=== PATIENT | male | born 1940 | race Caucasian/White ===

== ENCOUNTER 2020-04-16 20:39 | Inpatient (IN) | payer MEDICARE, OTHER ==
[~2020-04-16] VITALS: Ht 170.2 cm; Wt 77.1 kg
[~2020-04-16 20:39] MED LIST: ETOMIDATE 2 MG/ML 10 ML INJ IV ONE; MIDAZOLAM HCL 2 MG/2 ML VIAL ONE; VECURONIUM BROMIDE FOR INJ 20 MG VIAL ONE; WATER STERILE 10 ML VIAL ONE
[2020-04-16 21:11] LABS: BASOPHILS % 0.1 % (0.0-1.0); HEMATOCRIT 24.1 % (38.2-49.6); HEMOGLOBIN 7.8 g/dL (14.0-18.0); LYMPHOCYTES # (AUTO) 1.2 (1.0-3.2); LYMPHOCYTES % 8.4 % (18.0-39.1); MEAN CORPUSCULAR HEMOGLOBIN 32.5 pg (28-32); MEAN CORPUSCULAR HGB CONC 32.4 g/dL (31-35); MEAN CORPUSCULAR VOLUME 100.4 fL (81-99); MONOCYTES # (AUTO) 0.9 (0.2-0.8); MONOCYTES % 6.6 % (4.4-11.3); NEUTROPHILS # (AUTO) 11.9 (2.1-6.9); NEUTROPHILS % 84.5 % (38.7-80.0); PLATELET COUNT 425 x10e3/uL (140-360); RED CELL DISTRIBUTION WIDTH 13.4 % (11.7-14.4)
[2020-04-16 21:26] LABS: ALBUMIN 3.4 g/dL (3.5-5.0); ALBUMIN/GLOBULIN RATIO 0.9 (0.8-2.0); ANION GAP 20.8 mmol/L (8-16); CALCIUM 8.3 mg/dL (8.4-10.2); CREATININE, SERUM 1.29 mg/dL (0.72-1.25); POTASSIUM 3.8 mmol/L (3.5-5.1)
[2020-04-16] MEDS ORDERED: ASPIRIN 325 MG TAB PO ONE (21:45)
[2020-04-16] MEDS ORDERED: ASPIRIN 325 MG TAB ONE (21:52)
[2020-04-16] MEDS ORDERED: NITROGLYCERIN 2% OINT 1 GM PKT TOP ONE (22:00)
[2020-04-16] MEDS ORDERED: FUROSEMIDE INJ 10 MG/ML 4 ML VIAL IV ONE (22:00)
[2020-04-16 23:08] LABS: CREATINE KINASE MB 13.8 ng/mL (0-5.0)
[2020-04-16] MEDS ORDERED: LORAZEPAM INJ 2 MG/ML VIAL IV ONE (23:30)
[2020-04-17] MEDS ORDERED: LORAZEPAM INJ 2 MG/ML VIAL IV ONE (02:45)
[2020-04-17 04:27] LABS: BASOPHILS % 0.1 % (0.0-1.0); HEMATOCRIT 25.5 % (38.2-49.6); HEMOGLOBIN 7.9 g/dL (14.0-18.0); LYMPHOCYTES # (AUTO) 0.3 (1.0-3.2); MEAN CORPUSCULAR HEMOGLOBIN 32.2 pg (28-32); MEAN CORPUSCULAR VOLUME 104.1 fL (81-99); MONOCYTES # (AUTO) 1.4 (0.2-0.8); MONOCYTES % 5.7 % (4.4-11.3); NEUTROPHILS % 92.6 % (38.7-80.0); PLATELET COUNT 397 x10e3/uL (140-360); RED BLOOD COUNT 2.45 x10e6/uL (4.3-5.7); RED CELL DISTRIBUTION WIDTH 13.2 % (11.7-14.4)
[2020-04-17] MEDS ORDERED: CEFEPIME 1GM/NS 0.9% 50 ML 50 ML IV STA (04:35)
[2020-04-17 04:44] LABS: ANION GAP 22.2 mmol/L (8-16); CALCIUM 8.4 mg/dL (8.4-10.2); CREATININE, SERUM 1.86 mg/dL (0.72-1.25); POTASSIUM 4.2 mmol/L (3.5-5.1)
[2020-04-17 05:12] LABS: CREATINE KINASE MB 48.9 ng/mL (0-5.0)
[2020-04-17] MEDS ORDERED: ACETAMINOPHEN 650 MG SUPP PR ONE (05:55)
[2020-04-17 06:21] LABS: LYMPHOCYTES % (MANUAL) 1 % (19-48); MONOCYTES % (MANUAL) 5 % (3.4-9.0); NEUTROPHILS % (MANUAL) 94 % (40-74); NUCLEATED RED BLOOD CELLS 1; RBC MORPHOLOGY COMMENT NORMAL
[2020-04-17 06:22] LABS: PLATELET ESTIMATE ADEQUATE; PLATELET MORPHOLOGY COMMENT NORMAL
[2020-04-17 06:38] LABS: CLARITY,URINE CLEAR (CLEAR); COLOR,URINE YELLOW (YELLOW); KETONES,URINE NEGATIVE (NEGATIVE); LEUKOCYTE ESTERASE ,URINE NEGATIVE (NEGATIVE); NITRITE,URINE NEGATIVE (NEGATIVE); PROTEIN,URINE DIPSTICK 2+ (NEGATIVE); URINE UROBILINOGEN 0.2 mg/dL (0.2 - 1)
[2020-04-17 06:46] LABS: BACTERIA,URINE MODERATE /HPF; EPITHELIAL CELLS,URINE RARE /LPF; RBC,URINE 0-5 /HPF (0-5); WBC,URINE (MAN) 0-5 /HPF (0-5)
[2020-04-17] MEDS ORDERED: PROPOFOL IV EMULSION 10MG/ML 100 ML ONE (06:57)
[2020-04-17] MEDS ORDERED: FENTANYL 2000MCG/NS 250 250 ML ONE (06:58)
[2020-04-17] MEDS ORDERED: IOPAMIDOL 370 MG/ML 200 ML INFUS..BTL INJ ONE ×2 (06:59→08:34)
[2020-04-17] MEDS ORDERED: SODIUM CHLORIDE 0.9% 50ML 50 ML ONE (06:59)
[2020-04-17] MEDS ORDERED: SODIUM CHLORIDE 0.9% 1000ML 1,000 ML IV SCH (07:00)
[2020-04-17] MEDS ORDERED: CEFEPIME 1GM/NS 0.9% 50 ML 50 ML IV SCH (07:00)
[2020-04-17] MEDS ORDERED: VANCOMYCIN 1GM/NS 250 ML 250 ML IV ONE (07:00)
[2020-04-17] MEDS ORDERED: MIDAZOLAM HCL 2 MG/2 ML VIAL IV STA (07:04)
[2020-04-17] MEDS ORDERED: VECURONIUM BROMIDE FOR INJ 20 MG VIAL IV STA (07:05)
[2020-04-17] MEDS ORDERED: ETOMIDATE 2 MG/ML 10 ML INJ IV STA (07:05)
[2020-04-17] MEDS ORDERED: FENTANYL CITRATE INJ 2,000 MCG in SODIUM CHLORIDE 0.9% 250ML 210 ML IV STA (07:09)
[2020-04-17] MEDS ORDERED: PROPOFOL IV EMULSION 10MG/ML 100 ML IV STA (07:09)
[2020-04-17] MEDS ORDERED: NOREPINEPHRINE 8 MG/D5W 250 ML 250 ML IV SCH (07:30)
[2020-04-17] MEDS ORDERED: FENTANYL 2000MCG/NS 250 250 ML IV PRN (07:45)
[2020-04-17] MEDS ORDERED: AZITHROMYCIN 500MG/NS 250 ML 250 ML IV SCH (08:00)
[2020-04-17] MEDS ORDERED: HEPARIN SOD (PORCINE) 1000 UNIT/ML 30ML ONE (08:33)
[2020-04-17] MEDS ORDERED: MIDAZOLAM HCL 2 MG/2 ML VIAL ONE ×2 (08:33→12:04)
[2020-04-17] MEDS ORDERED: FENTANYL CITRATE/PF 100MCG/2 ML INJ ONE (08:33)
[2020-04-17] MEDS ORDERED: LIDOCAINE HCL 2% LOCAL 20 ML VIAL ONE (08:33)
[2020-04-17] MEDS ORDERED: HEPARIN SOD/SOD CHLORIDE 2,000 ML ONE (08:34)
[2020-04-17] MEDS ORDERED: NITROGLYCERIN/D5W 200 MCG/ML 0 ML ONE (08:34)
[2020-04-17] MEDS ORDERED: SODIUM CHLORIDE 0.9% 1000ML 0 ML ONE (08:34)
[2020-04-17] MEDS ORDERED: ASPIRIN 325 MG TAB PO SCH (09:00)
[2020-04-17] MEDS ORDERED: CEFTRIAXONE SOD 2 GM/NS 100 ML 100 ML IV SCH (09:00)
[2020-04-17] MEDS ORDERED: FUROSEMIDE INJ 10 MG/ML 4 ML VIAL IV SCH (09:00)
[2020-04-17 09:20] VITALS: BP 106/54
[2020-04-17] MEDS ORDERED: FUROSEMIDE INJ 10 MG/ML 4 ML VIAL ONE (09:51)
[2020-04-17] MEDS ORDERED: EPTIFIBATIDE 10 ML ONE (10:03)
[2020-04-17] MEDS ORDERED: EPTIFIBATIDE 75mg 100ML 100 ML ONE (10:03)
[2020-04-17] MEDS ORDERED: HEPARIN 25,000 UNIT DRIP IV ONE ×2 (10:03→10:04)
== END 2020-04-17 12:19 | disposition short-term general hospital (02) | DRG 853 ==
LOC: ER 21:03 → ERHOLD 22:44
PROVIDERS: ADMIT Internal Medicine; ATTEND Internal Medicine
PROC: 5A1935Z Respiratory Ventilation, Less than 24 Consecutive Hours (ICD-10-PCS; principal; 2020-04-17)
PROC: 0BH18EZ Insertion of Endotracheal Airway into Trachea, Via Natural or Artificial Opening Endoscopic (ICD-10-PCS; 2020-04-17)
PROC: 5A02210 Assistance with Cardiac Output using Balloon Pump, Continuous (ICD-10-PCS; 2020-04-17)
PROC: 4A023N7 Measurement of Cardiac Sampling and Pressure, Left Heart, Percutaneous Approach (ICD-10-PCS; 2020-04-17)
PROC: B2111ZZ Fluoroscopy of Multiple Coronary Arteries using Low Osmolar Contrast (ICD-10-PCS; 2020-04-17)
PROC: B2151ZZ Fluoroscopy of Left Heart using Low Osmolar Contrast (ICD-10-PCS; 2020-04-17)
PROC: 02HV33Z Insertion of Infusion Device into Superior Vena Cava, Percutaneous Approach (ICD-10-PCS; 2020-04-17)
DX: A41.9 Sepsis, unspecified organism (principal); I21.4 Non-ST elevation (NSTEMI) myocardial infarction; R65.21 Severe sepsis with septic shock; J18.9 Pneumonia, unspecified organism; I50.23 Acute on chronic systolic (congestive) heart failure; J96.01 Acute respiratory failure with hypoxia; E87.1 Hypo-osmolality and hyponatremia; E87.2 Acidosis; I13.0 Hypertensive heart and chronic kidney disease with heart failure and stage 1 through stage 4 chronic kidney disease, or unspecified chronic kidney disease; N17.9 Acute kidney failure, unspecified; E11.22 Type 2 diabetes mellitus with diabetic chronic kidney disease; N18.30 Chronic kidney disease, stage 3 unspecified; Z21 Asymptomatic human immunodeficiency virus [HIV] infection status; D75.89 Other specified diseases of blood and blood-forming organs; R59.9 Enlarged lymph nodes, unspecified; Z20.822 Contact with and (suspected) exposure to COVID-19
CPT/HCPCS: 31500; 33970; 36415; 36600; 51700; 71045; 71260; 80048; 80053; 81001; 82550; 82553; 82948; 83605; 83690; 83735; 83880; 84484; 85025; 87040; 93005; 93458; 94002; 94660; 99284; C1769; C1887; J0692; J0696; J1327; J1644; J1940; J2001; J2060; J2250; J3010; J3370; J7030; Q9967; U0002